=== PATIENT | female | born 1945 | race Caucasian/White ===

== ENCOUNTER → 2017-07-02 | Outpatient (CLI) | payer OTHER ==
--- NOTE | 2017-07-03 07:58 | MAMMOGRAPHY REPORT ---
BILATERAL DIGITAL SCREENING MAMMOGRAM WITH CAD: 07/02/2017 CLINICAL HISTORY: Routine screening. Patient has no complaints. TECHNIQUE: Bilateral CC and MLO views were obtained. Current study was also evaluated with a Compute r Aided Detection (CAD) system. COMPARISON: Comparison is made to exams dated: 06/28/2016 mammogram, 06/27/2015 mammogram, 06/25/2014 ma mmogram, 06/24/2013 mammogram, 06/23/2012 mammogram, and 06/22/2011 mammogram - [facility]. BREAST COMPOSITION: There are scattered areas of fibroglandular density in both breasts. FINDINGS: There is stable nodularity bilaterally, and a few benign rim calcifications in the breasts. No suspicious spiculated or irregular mass, architectural distortion or cluster of microcalcificati ons is seen. IMPRESSION: ACR BI-RADS CATEGORY 1: NEGATIVE There is no mammographic evidence of malignancy. A 1 year screening mammogram is recommended. The pa tient will receive written notification of the results. Approximately 10% of breast cancers are not detected with mammography. A negative mammographic report should not delay biopsy if a clinically suggestive mass is present. Florence Wharton M.D. ay/:07/02/2017 15:20:36 [place] Cutter: Sophie CARMONA(R)(M), [facility] letter sent: Normal 1/2 BI-RADS Code: ACR BI-RADS Category 1: Negative
== END | disposition home or self-care (01) ==
LOC: C.MAMM 14:44
PROVIDERS: ATTEND Obstetrics & Gynecology
DX: Z12.31 Encounter for screening mammogram for malignant neoplasm of breast (principal)

== ENCOUNTER → 2018-07-07 | Outpatient (CLI) | payer OTHER ==
--- NOTE | 2018-07-08 06:58 | MAMMOGRAPHY REPORT ---
BILATERAL DIGITAL SCREENING MAMMOGRAM TOMOSYNTHESIS WITH CAD: 07/07/2018 CLINICAL HISTORY: Routine screening. Patient has no complaints. TECHNIQUE: The study was acquired using full field digital technology and interpreted from soft copy. Breast tomosynthesis in addition to standard 2D mammography was performed. Current study was also ev aluated with a Computer Aided Detection (CAD) system. COMPARISON: Comparison is made to exams dated: 07/02/2017 mammogram, 06/28/2016 mammogram, 06/27/2015 m ammogram, 06/25/2014 mammogram, 06/24/2013 mammogram, and 06/23/2012 mammogram - [facility]. BREAST COMPOSITION: There are scattered areas of fibroglandular density in both breasts. FINDINGS: There is fluctuating nodularity in the breasts, with multiple bilateral circumscribed subce ntimeter benign-appearing masses. Scattered benign rim calcifications as well. No suspicious spicul ated or irregular mass, architectural distortion or cluster of suspicious microcalcifications is seen . IMPRESSION: ACR BI-RADS CATEGORY 1: NEGATIVE There is no mammographic evidence of malignancy. A 1 year screening mammogram is recommended.( 019) The patient will receive written notification of the results. Some breast cancers are not detected with mammography. A negative mammographic report should not marcial y biopsy if a clinically suggestive mass is present. Florence Wharton M.D. ay/:07/07/2018 15:55:03 [place] Operator: Sara Villarreal RT(R)(M), [facility] letter sent: Normal 1/2 BI-RADS Code: ACR BI-RADS Category 1: Negative
== END | disposition home or self-care (01) ==
LOC: C.MAMM 09:06
PROVIDERS: ATTEND Family Medicine
DX: Z12.31 Encounter for screening mammogram for malignant neoplasm of breast (principal)

== ENCOUNTER 2021-06-23 16:21 | Inpatient (IN) ==
[2021-06-23] MEDS ORDERED: SODIUM CHLORIDE 0.9% 1000ML 1,000 ML IV ONE (16:28)
[2021-06-23] MEDS ORDERED: SODIUM CHLORIDE 0.9% 1000ML 1,000 ML IV SCH ×2 (16:30→18:45)
[2021-06-23] MEDS ORDERED: dilTIAZem HCl 5 MG/ML 5 ML VIAL IV ONE (16:36)
[2021-06-23 17:00] LABS: Basophils # (auto) 0.01 K/uL (0-0.2); Basophils % (auto) 0.2 %; Eosinophils # (auto) 0.02 K/uL (0-0.5); Eosinophils % (auto) 0.3 %; Hematocrit (blood only) 42.7 % (37-47); Hemoglobin 14.6 g/dL (12.0-16.0); Immature Granulocytes # (auto) 0.01 K/uL (0.00-0.02); Immature Granulocytes % (auto) 0.2 %; Lymphocytes # (auto) 2.83 K/uL (1.2-3.4); Lymphocytes % (auto) 44.8 %; Mean Corpuscular Hemoglobin 30.4 pg (25-34); Mean Corpuscular Hgb Conc 34.2 g/dL (32-36); Monocytes # (auto) 0.88 K/uL (0.11-0.59); Monocytes % (auto) 13.9 %; Neutrophils # (auto) 2.56 K/uL (1.4-6.5); Neutrophils % (auto) 40.6 %; Platelet Count 216 K/uL (130-400); RDW Coefficient of Variation 13.9 % (11.5-14.5); RDW Standard Deviation 45.5 fL (36.4-46.3); White Blood Count 6.31 K/uL (4.8-10.8)
[2021-06-23 17:04] LABS: iSTAT Creatinine 0.6 mg/dl (0.6-1.3); iSTAT Hemoglobin 14.6 g/dl (12.0-16.0); iSTAT Ionized Calcium 1.27 mmol/l (1.12-1.32); iSTAT Potassium 3.7 mmol/L (3.3-5.0)
--- NOTE | 2021-06-23 17:05 | XRay Report ---
SINGLE VIEW CHEST CLINICAL HISTORY: Sepsis. FINDINGS: An AP, portable, upright chest radiograph is obtained. No prior studies are available for c omparison at the time of dictation. The cardiomediastinal silhouette is unremarkable. Airspace opaci ties at the left lung base likely represent atelectasis. A 9 mm hyperdense nodular density projects o rimma the left lower lung. No large pleural effusion or pneumothorax is seen. The skeletal structures a re osteopenic. There are healed right-sided rib fractures. IMPRESSION: 1. Left basilar opacities likely represent atelectasis. Correlate clinically for evidence of a superi mposed infectious/inflammatory pneumonitis. 2. A 9 mm hyperdense nodule projects over the left lung base and may represent a calcified granuloma. Follow-up with a dedicated PA and lateral examination in 1-2 months time is recommended for reassess ment. ACT 112: Negative or not required by law. Electronically signed by: Diogo Lucio M.D. 06/23/2021 5:04 PM
[2021-06-23 17:13] LABS: Oxygen Saturation VBG 74.6 %; pH VBG 7.43 (7.36-7.41)
[2021-06-23 17:15] LABS: Partial Thromboplastin Time 26.2 Seconds (21.0-31.0); Prothrombin Time 10.6 Seconds (9.0-12.0)
[2021-06-23] MEDS ORDERED: OPTIRAY 320 125ml IV ONE (17:23)
[2021-06-23 17:24] LABS: Alanine Aminotransferase 58 U/L (12-78); Albumin Level 2.9 gm/dl (3.4-5.0); Aspartate Aminotransferase 43 U/L (15-37); BUN Creatinine Ratio 21.2 (10-20); Blood Urea Nitrogen 16 mg/dl (7-18); Calcium 8.6 mg/dl (8.5-10.1); Carbon Dioxide 25 mmol/L (21-32); Chloride 109 mmol/L (98-107); Est GFR (African American) 91.2 ml/min; Est GFR (Non-African American) 78.7 ml/min; Glucose 237 mg/dl (70-99); Magnesium 1.8 mg/dl (1.8-2.4); Potassium 3.6 mmol/L (3.5-5.1); Sodium 139 mmol/L (136-145)
[2021-06-23 17:31] LABS: Albumin Globulin Ratio 0.8 (0.9-2); Alkaline Phosphatase 79 U/L (45-117); Bilirubin,Total 0.5 mg/dl (0.2-1); Globulin 3.6 gm/dl (2.5-4.0); Total Protein 6.5 gm/dl (6.4-8.2); Troponin I 0.052 ng/ml (0-0.045)
--- NOTE | 2021-06-23 18:10 | Emergency Department Note ---
History of Present Illness General Chief complaint: Cardiac Assessment Stated complaint: Afib/loss of taste/smell Time Seen by Provider: 06/23/21 16:22 History of Present Illness Provider complaint: Nausea loss of taste and smell weakness shortness of breath cough Onset (ago): day(s) 3 Pain Consistency: + constant Associated symptoms: + cough, + malaise, + nausea/vomiting and + shortness of breath 76-year-old female presents emergency department for cough, mobilized, loss of taste smell, shortness of breath, and palpitations. Patient states her symptoms are gone for last 3 days. Patient states she recently returned from [place] where she was dog sitting her son's animals. She states she got ill while she was down there and had her drive down to [place] to pick her up. The patient states they returned to [place] yesterday after driving from [place]. The patient denies any hemoptysis. She denies any history of atrial fibrillation. She denies getting a Covid vaccine. Patient denies any syncopal episodes. She denies any chest pain. Patient is a diabetic. Patient states she has been so ill that she has been unable to take her pravastatin or atenolol that she is prescribed for the last 2 days. Home Medications Medication Instructions Recorded Confirmed Type acetaminophen 500 mg tablet 1,000 mg PO DIRECTED PRN 06/23/21 06/23/21 History (Tylenol Extra Strength) aspirin 81 mg tablet,delayed 81 mg PO DAILY 06/23/21 06/23/21 History release atenolol 50 mg tablet 50 mg PO DAILY 06/23/21 06/23/21 History cholecalciferol (vitamin D3) 25 25 mcg PO DAILY 06/23/21 06/23/21 History mcg (1,000 unit) capsule (Vitamin D3) hydroxyzine HCl 10 mg tablet 10 - 20 mg PO HS PRN 06/23/21 06/23/21 History insulin degludec 200 unit/mL (3 30 unit SUBCUT QPM 06/23/21 06/23/21 History mL) subcutaneous pen (Tresiba FlexTouch U-200 insulin) pravastatin 40 mg tablet 40 mg PO DAILY 06/23/21 06/23/21 History triamcinolone acetonide 0.1 % 1 applic TOPICAL BID PRN 06/23/21 06/23/21 History topical ointment Allergies Allergy/AdvReac Type Severity Reaction Status Date / Time No Known Allergies Allergy Verified 06/23/21 17:32 Past Med/Surg History Medical History (Updated 06/23/21 @ 19:52 by Rosalio Gutiérrez) HLD (hyperlipidemia) Hypertension IDDM (insulin dependent diabetes mellitus) No pertinent family history Surgical History (Updated 06/23/21 @ 18:16 by Rosalio Gutiérrez) No pertinent past surgical history Social History Smoking Status: Unknown if ever smoked Preferred Language: Divehi Review of Systems A total of 10 systems reviewed and were otherwise negative Physical Exam Vital Signs Vital Signs - 24 hr 06/23/21 16:41 06/23/21 16:50 06/23/21 17:33 Temperature Temperature Source Pulse Rate 108 H 92 H 101 H Pulse Rate from SpO2 Sensor 91 H 86 115 H Respiratory Rate 16 20 23 Blood Pressure 165/108 H 166/103 H Blood Pressure Mean 127 124 Pulse Oximetry 92 97 92 Oxygen Delivery Method Sepsis Recent Fever Within 48 Hours Sepsis New/Unexplained Change in Mental Status Sepsis Action Taken by Nursing 06/23/21 18:19 06/23/21 18:25 06/23/21 18:33 Temperature 36.7 C Temperature Source Oral Pulse Rate 134 H 140 H 130 H Pulse Rate from SpO2 Sensor 116 H 115 H Respiratory Rate 27 H 20 18 Blood Pressure 90/54 L 130/90 Blood Pressure Mean 66 103 Pulse Oximetry 92 94 93 Oxygen Delivery Method Room Air Sepsis Recent Fever Within 48 Hours No Sepsis New/Unexplained Change in Mental Status N/A Sepsis Action Taken by Nursing No Action Required 06/23/21 18:56 Temperature Temperature Source Pulse Rate Pulse Rate from SpO2 Sensor Respiratory Rate Blood Pressure Blood Pressure Mean Pulse Oximetry Oxygen Delivery Method Room Air Sepsis Recent Fever Within 48 Hours Sepsis New/Unexplained Change in Mental Status Sepsis Action Taken by Nursing Physical Exam GENERAL: She is oriented to person, place, and time. She appears well-developed and well-nourished. She does not appear distressed. HENT: Exam performed. -Head: Normocephalic and atraumatic. -Right Ear: External ear normal. No mastoid tenderness. -Left Ear: External ear normal. No mastoid tenderness. -Mouth/Throat: The oropharynx is clear and moist. No trismus in the jaw. No dental abscesses or uvula swelling. No oropharyngeal exudate or tonsillar abscesses. EYES: Conjunctivae and EOM are normal. Pupils are equal, round, and reactive to light. Right eye exhibits no discharge. Left eye exhibits no discharge. No scleral icterus. NECK: Normal range of motion. Neck supple. No JVD present. No spinous process tenderness present. No carotid bruit present. No rigidity. No tracheal deviation and normal range of motion present. No Brudzinski's sign and no Kernig's sign noted. CV: Tachycardic rate, irregular rhythm, normal heart sounds and intact distal pulses. There is no peripheral edema. Palpable radial pulses bue. PULM/CHEST: Rhonchi bilaterally. ABD: The abdomen is soft. Bowel sounds are normal. She has no distension. No mass is present. There is no tenderness. There is no rebound, no guarding, no Thakur's sign and no tenderness at McBurney's point. Rovsig negative MUSC/SKEL: Normal range of motion. There is no peripheral edema, tenderness or deformity. LYMPH: No cervical adenopathy. NEURO: She is alert and oriented to person, place, and time. She has normal strength. No cranial nerve deficit or sensory deficit. Coordination and gait normal. GCS eye subscore is 4. GCS verbal subscore is 5. GCS motor subscore is 6. Cerebellar tests wnl. SKIN: Skin is warm and dry. She is not diaphoretic. PSYCH: She has a normal mood and affect. Behavior is normal. Judgment and thought content normal. Course Course 1600: Received call from EMS for 76-year-old female who is in atrial fibrillation with rapid ventricular rate. EMS states that they were concerned that the patient might have COVID-19 as she has recently traveled and is reporting mellitus, palpitations, nausea and loss of taste or smell. Patient is on vaccine gets COVID-19. EMS asked if they should give any rate controlling medications however I encouraged him to adequately hydrate the patient as if there is concerned that she is having COVID-19 she could be septic. 500 cc bolus of normal saline was ordered for the patient and I instructed EMS to call me back to see if the patient's heart rate is improving with the fluids and then we can possibly rebolused the patient. 1622: The patient was evaluated in room B. A complete history and physical exam was performed Cardiac monitoring: An order was placed for continuous cardiac monitoring. The monitor shows a rate of 140 with atrial fibrilation rhythm EMS reported that the patient's heart rate did improve with IV fluids. They did start a second bolus of 500 cc. The EMS crew reported that while getting the second bolus of 500 cc the patient's heart rate ranged from 70-140. IV fluids are continued at this time. While getting IV fluids the patient's heart rate ranges from 100-140. We will continue IV fluids on the patient and hold off on any rate controlling medications as there is concerned that the patient could be septic from COVID-19. 1650: After 1 L of IV fluids the patient's heart rate is ranging from 80-110. Patient states she has been so ill she has been unable to take her atenolol for the last 2 days. Patient has her home atenolol 50 mg at bedside. Patient was giving her home medication atenolol 50 mg p.o. and tolerated it well. We will continue IV fluids at this patient. Chest x-ray reviewed by me does show findings that could be concerning for COVID-19 including bilateral groundglass o pacities. Patient's creatinine and potassium are within normal limits. Given the patient's recent travel and her rapid ventricular rate, the patient be taken for CTA of the chest rule out PE. 1730: On return from the CT the patient's heart rate is between 80 and 110 in atrial fibrillation rhythm. Labs are within normal limits with the exception of troponin of 0.052. 1845: Called to bedside by nursing. Patient's heart rate is ranging anywhere from 90-160. Patient be given IV fluids again and started on Cardizem drip as well as heparin drip. CTA of the chest negative for PE or dissection. CTA of the chest does make note of patchy groundglass opacities seen throughout both lungs. I discussed the case with the patient's son Moiz [phone]. I explained to him as well as the patient that the patient will be admitted to the hospital for her atrial fibrillation with rapid ventricular rate as well as her COVID-19 infection. Patient is still having stable oxygen saturations on room air. Moiz asks that his Lakshmi phone number also be included in the chart at [phone] in case he is unavailable. Patient will be admitted to the [facility] hospitalist team Dr. Limon will be notified. 1930: [facility] will evaluate the patient and admit the patient. Administered Medications Heparin Sodium/Dextrose (Heparin Sodium/Dextrose) 25,000 units in 500 mls @ 26 mls/hr IV .[id number] AMY; Protocol Stop: 07/23/21 18:44 Last Admin: 06/23/21 19:16 Dose: 1,300 units/hr, 26 mls/hr Documented by: [id number] Cosigned by: [id number] Diltiazem HCl 125 mg/ Dextrose 125 mls @ 5 mls/hr IV .Q24H AMY; Protocol Stop: 07/23/21 18:44 Last Titration: 06/23/21 19:49 Dose: 7.5 mg/hr, 7.5 mls/hr Documented by: [id number] Cosigned by: [id number] Admin: 06/23/21 19:12 Dose: 5 mg/hr, 5 mls/hr Documented by: [id number] Cosigned by: [id number] Sodium Chloride (Nss 1000ml) 1,000 mls @ 125 mls/hr IV .Q8H AMY Stop: 07/23/21 18:44 Last Admin: 06/23/21 19:06 Dose: 125 mls/hr Documented by: [id number] Discontinued Medications Diltiazem HCl (Diltiazem Hcl 5 Mg/Ml 5 Ml Vial) Confirm Administered Dose 25 mg IV .STK-MED ONE Stop: 06/23/21 16:37 Last Admin: 06/23/21 19:05 Dose: Not Given Documented by: [id number] Heparin Sodium (Porcine) (Heparin Sod (Porcine) 1000 Unit/Ml) 1 units IV NOW ONE Stop: 06/23/21 18:41 Last Admin: 06/23/21 19:15 Dose: 6,000 units Documented by: [id number] Cosigned by: [id number] Sodium Chloride (Nss 1000ml) 1,000 mls @ 999 mls/hr IV .Q1H1M ONE Stop: 06/23/21 17:28 Last Admin: 06/23/21 17:35 Dose: 999 mls/hr Documented by: [id number] Ioversol (Optiray 320 125ml) 116 ml IV ONCE ONE Stop: 06/23/21 17:24 Last Admin: 06/23/21 17:24 Dose: 116 ml Documented by: [id number] Critical Care Time Critical Care Time: Yes Total Critical Care Time: 76 I have personally spent greater than 76 minutes of critical care time in the direct management of this patient. This includes bedside care, interpretation of diagnostic studies, and testing, discussion with consultants, patient, and family members, and other required patient management activities. This 76 minutes is in excess of all separately billable procedures. Medical Decision Making Laboratory Data Result diagrams: 06/23/21 16:40 06/23/21 16:40 Lab Results 06/23/21 06/23/21 06/23/21 Range/Units 16:30 16:30 16:40 WBC (4.8-10.8) K/uL RBC (4.2-5.4) M/uL Hgb (12.0-16.0) g/dL POC Hgb (12.0-16.0) g/dl Hct (37-47) % POC Hct (37-47) % MCV (80-100) fL MCH (25-34) pg MCHC (32-36) g/dL RDW Std Deviation (36.4-46.3) fL RDW Coeff of Tanner (11.5-14.5) % Plt Count (130-400) K/uL MPV (7.4-10.4) fL Immature Gran % (Auto) % Neut % (Auto) % Lymph % (Auto) % [place]usk % (Auto) % Eos % (Auto) % Baso % (Auto) % Neut # (Auto) (1.4-6.5) K/uL Lymph # (Auto) (1.2-3.4) K/uL [place] # (Auto) (0.11-0.59) K/uL Eos # (Auto) (0-0.5) K/uL Baso # (Auto) (0-0.2) K/uL Immature Gran # (Auto) (0.00-0.02) K/uL PT (9.0-12.0) Seconds INR (0.9-1.1) APTT (21.0-31.0) Seconds PTT Ratio VBG pH (7.36-7.41) VBG pCO2 (38-50) mmHg VBG pO2 mmHg VBG HCO3 mmol/L VBG O2 Saturation % VBG Base Excess mEq/L Barometric Pressure mm/Hg POC Sodium (135-144) mmol/L Sodium 139 (136-145) mmol/L POC Potassium (3.3-5.0) mmol/L Potassium 3.6 (3.5-5.1) mmol/L POC Chloride (101-112) mmol/L Chloride 109 H (98-107) mmol/L Carbon Dioxide 25 (21-32) mmol/L POC Total CO2 (24-31) mmol/L Anion Gap 5.0 (3-11) POC Anion Gap (16-25) mmol/L POC BUN (7-18) mg/dl BUN 16 (7-18) mg/dl Creatinine 0.74 (0.6-1.2) mg/dl POC Creatinine (0.6-1.3) mg/dl Est Cr Clr Drug Dosing Not Reportable Est GFR ( Amer) 91.2 ml/min Est GFR (Non-Af Amer) 78.7 ml/min BUN/Creatinine Ratio 21.2 H (10-20) Glucose 237 H (70-99) mg/dl POC Glucose (other) (70-99) mg/dl Lactate (0.4-2.0) mmol/L Calcium 8.6 (8.5-10.1) mg/dl POC Ioniz Calcium Ermias (1.12-1.32) mmol/l Magnesium 1.8 (1.8-2.4) mg/dl Total Bilirubin 0.5 (0.2-1) mg/dl AST 43 H (15-37) U/L ALT 58 (12-78) U/L Alkaline Phosphatase 79 (45-117) U/L Troponin I 0.052 H* (0-0.045) ng/ml Total Protein 6.5 (6.4-8.2) gm/dl Albumin 2.9 L (3.4-5.0) gm/dl Globulin 3.6 (2.5-4.0) gm/dl Albumin/Globulin Ratio 0.8 L (0.9-2) Procalcitonin (0-0.5) ng/ml Urine Color Urine Appearance (Clear) Urine pH (4.5-7.5) Ur Specific [place] (1.000-1.030) Urine Protein (Negative) Urine Glucose (UA) (Negative) Urine Ketones (Negative) Urine Blood (Negative) Urine Nitrite (Negative) Urine Bilirubin (Negative) Urine Urobilinogen (Negative) Ur Leukocyte Esterase (Negative) Urine WBC (Auto) (0-5) /hpf Urine RBC (Auto) (0-4) /hpf U Hyaline Cast (Auto) (0-5) /lpf U Epithel Cells (Auto) (0-5) /lpf Urine Bacteria (Auto) (Negative) COVID-19 Eval Order Covid19 at [facility] SARS-CoV-2 (PCR) POSITIVE A* (Negative) 06/23/21 06/23/21 06/23/21 Range/Units 16:40 16:40 16:40 WBC 6.31 (4.8-10.8) K/uL RBC 4.80 (4.2-5.4) M/uL Hgb 14.6 (12.0-16.0) g/dL POC Hgb (12.0-16.0) g/dl Hct 42.7 (37-47) % POC Hct (37-47) % MCV 89.0 (80-100) fL MCH 30.4 (25-34) pg MCHC 34.2 (32-36) g/dL RDW Std Deviation 45.5 (36.4-46.3) fL RDW Coeff of Tanner 13.9 (11.5-14.5) % Plt Count 216 (130-400) K/uL MPV 12.0 H (7.4-10.4) fL Immature Gran % (Auto) 0.2 % Neut % (Auto) 40.6 % Lymph % (Auto) 44.8 % Rusk % (Auto) 13.9 % Eos % (Auto) 0.3 % Baso % (Auto) 0.2 % Neut # (Auto) 2.56 (1.4-6.5) K/uL Lymph # (Auto) 2.83 (1.2-3.4) K/uL [place] # (Auto) 0.88 H (0.11-0.59) K/uL Eos # (Auto) 0.02 (0-0.5) K/uL Baso # (Auto) 0.01 (0-0.2) K/uL Immature Gran # (Auto) 0.01 (0.00-0.02) K/uL PT (9.0-12.0) Seconds INR (0.9-1.1) APTT (21.0-31.0) Seconds PTT Ratio VBG pH 7.43 H (7.36-7.41) VBG pCO2 36 L (38-50) mmHg VBG pO2 40 mmHg VBG HCO3 24 mmol/L VBG O2 Saturation 74.6 % VBG Base Excess 0 mEq/L Barometric Pressure 734.6 mm/Hg POC Sodium (135-144) mmol/L Sodium (136-145) mmol/L POC Potassium (3.3-5.0) mmol/L Potassium (3.5-5.1) mmol/L POC Chloride (101-112) mmol/L Chloride (98-107) mmol/L Carbon Dioxide (21-32) mmol/L POC Total CO2 (24-31) mmol/L Anion Gap (3-11) POC Anion Gap (16-25) mmol/L POC BUN (7-18) mg/dl BUN (7-18) mg/dl Creatinine (0.6-1.2) mg/dl POC Creatinine (0.6-1.3) mg/dl Est Cr Clr Drug Dosing Est GFR ( Amer) ml/min Est GFR (Non-Af Amer) ml/min BUN/Creatinine Ratio (10-20) Glucose (70-99) mg/dl POC Glucose (other) (70-99) mg/dl Lactate (0.4-2.0) mmol/L Calcium (8.5-10.1) mg/dl POC Ioniz Calcium Ermias (1.12-1.32) mmol/l Magnesium (1.8-2.4) mg/dl Total Bilirubin (0.2-1) mg/dl AST (15-37) U/L ALT (12-78) U/L Alkaline Phosphatase (45-117) U/L Troponin I (0-0.045) ng/ml Total Protein (6.4-8.2) gm/dl Albumin (3.4-5.0) gm/dl Globulin (2.5-4.0) gm/dl Albumin/Globulin Ratio (0.9-2) Procalcitonin < 0.05 (0-0.5) ng/ml Urine Color Urine Appearance (Clear) Urine pH (4.5-7.5) Ur Specific [place] (1.000-1.030) Urine Protein (Negative) Urine Glucose (UA) (Negative) Urine Ketones (Negative) Urine Blood (Negative) Urine Nitrite (Negative) Urine Bilirubin (Negative) Urine Urobilinogen (Negative) Ur Leukocyte Esterase (Negative) Urine WBC (Auto) (0-5) /hpf Urine RBC (Auto) (0-4) /hpf U Hyaline Cast (Auto) (0-5) /lpf U Epithel Cells (Auto) (0-5) /lpf Urine Bacteria (Auto) (Negative) COVID-19 Eval Order SARS-CoV-2 (PCR) (Negative) 06/23/21 06/23/21 06/23/21 Range/Units 16:40 16:40 16:52 WBC (4.8-10.8) K/uL RBC (4.2-5.4) M/uL Hgb (12.0-16.0) g/dL POC Hgb 14.6 (12.0-16.0) g/dl Hct (37-47) % POC Hct 43 (37-47) % MCV (80-100) fL MCH (25-34) pg MCHC (32-36) g/dL RDW Std Deviation (36.4-46.3) fL RDW Coeff of Tanner (11.5-14.5) % Plt Count (130-400) K/uL MPV (7.4-10.4) fL Immature Gran % (Auto) % Neut % (Auto) % Lymph % (Auto) % [place] % (Auto) % Eos % (Auto) % Baso % (Auto) % Neut # (Auto) (1.4-6.5) K/uL Lymph # (Auto) (1.2-3.4) K/uL [place] # (Auto) (0.11-0.59) K/uL Eos # (Auto) (0-0.5) K/uL Baso # (Auto) (0-0.2) K/uL Immature Gran # (Auto) (0.00-0.02) K/uL PT 10.6 (9.0-12.0) Seconds INR 1.0 (0.9-1.1) APTT 26.2 (21.0-31.0) Seconds PTT Ratio 1.0 VBG pH (7.36-7.41) VBG pCO2 (38-50) mmHg VBG pO2 mmHg VBG HCO3 mmol/L VBG O2 Saturation % VBG Base Excess mEq/L Barometric Pressure mm/Hg POC Sodium 141 (135-144) mmol/L Sodium (136-145) mmol/L POC Potassium 3.7 (3.3-5.0) mmol/L Potassium (3.5-5.1) mmol/L POC Chloride 103 (101-112) mmol/L Chloride (98-107) mmol/L Carbon Dioxide (21-32) mmol/L POC Total CO2 24 (24-31) mmol/L Anion Gap (3-11) POC Anion Gap 18.0 (16-25) mmol/L POC BUN 17 (7-18) mg/dl BUN (7-18) mg/dl Creatinine (0.6-1.2) mg/dl POC Creatinine 0.6 (0.6-1.3) mg/dl Est Cr Clr Drug Dosing Est GFR ( Amer) ml/min Est GFR (Non-Af Amer) ml/min BUN/Creatinine Ratio (10-20) Glucose (70-99) mg/dl POC Glucose (other) 252 H (70-99) mg/dl Lactate 1.6 (0.4-2.0) mmol/L Calcium (8.5-10.1) mg/dl POC Ioniz Calcium Ermias 1.27 (1.12-1.32) mmol/l Magnesium (1.8-2.4) mg/dl Total Bilirubin (0.2-1) mg/dl AST (15-37) U/L ALT (12-78) U/L Alkaline Phosphatase (45-117) U/L Troponin I (0-0.045) ng/ml Total Protein (6.4-8.2) gm/dl Albumin (3.4-5.0) gm/dl Globulin (2.5-4.0) gm/dl Albumin/Globulin Ratio (0.9-2) Procalcitonin (0-0.5) ng/ml Urine Color Urine Appearance (Clear) Urine pH (4.5-7.5) Ur Specific [place] (1.000-1.030) Urine Protein (Negative) Urine Glucose (UA) (Negative) Urine Ketones (Negative) Urine Blood (Negative) Urine Nitrite (Negative) Urine Bilirubin (Negative) Urine Urobilinogen (Negative) Ur Leukocyte Esterase (Negative) Urine WBC (Auto) (0-5) /hpf Urine RBC (Auto) (0-4) /hpf U Hyaline Cast (Auto) (0-5) /lpf U Epithel Cells (Auto) (0-5) /lpf Urine Bacteria (Auto) (Negative) COVID-19 Eval Order SARS-CoV-2 (PCR) (Negative) 06/23/21 Range/Units 17:39 WBC (4.8-10.8) K/uL RBC (4.2-5.4) M/uL Hgb (12.0-16.0) g/dL POC Hgb (12.0-16.0) g/dl Hct (37-47) % POC Hct (37-47) % MCV (80-100) fL MCH (25-34) pg MCHC (32-36) g/dL RDW Std Deviation (36.4-46.3) fL RDW Coeff of Tanner (11.5-14.5) % Plt Count (130-400) K/uL MPV (7.4-10.4) fL Immature Gran % (Auto) % Neut % (Auto) % Lymph % (Auto) % [place] % (Auto) % Eos % (Auto) % Baso % (Auto) % Neut # (Auto) (1.4-6.5) K/uL Lymph # (Auto) (1.2-3.4) K/uL [place] # (Auto) (0.11-0.59) K/uL Eos # (Auto) (0-0.5) K/uL Baso # (Auto) (0-0.2) K/uL Immature Gran # (Auto) (0.00-0.02) K/uL PT (9.0-12.0) Seconds INR (0.9-1.1) APTT (21.0-31.0) Seconds PTT Ratio VBG pH (7.36-7.41) VBG pCO2 (38-50) mmHg VBG pO2 mmHg VBG HCO3 mmol/L VBG O2 Saturation % VBG Base Excess mEq/L Barometric Pressure mm/Hg POC Sodium (135-144) mmol/L Sodium (136-145) mmol/L POC Potassium (3.3-5.0) mmol/L Potassium (3.5-5.1) mmol/L POC Chloride (101-112) mmol/L Chloride (98-107) mmol/L Carbon Dioxide (21-32) mmol/L POC Total CO2 (24-31) mmol/L Anion Gap (3-11) POC Anion Gap (16-25) mmol/L POC BUN (7-18) mg/dl BUN (7-18) mg/dl Creatinine (0.6-1.2) mg/dl POC Creatinine (0.6-1.3) mg/dl Est Cr Clr Drug Dosing Est GFR ( Amer) ml/min Est GFR (Non-Af Amer) ml/min BUN/Creatinine Ratio (10-20) Glucose (70-99) mg/dl POC Glucose (other) (70-99) mg/dl Lactate (0.4-2.0) mmol/L Calcium (8.5-10.1) mg/dl POC Ioniz Calcium Ermias (1.12-1.32) mmol/l Magnesium (1.8-2.4) mg/dl Total Bilirubin (0.2-1) mg/dl AST (15-37) U/L ALT (12-78) U/L Alkaline Phosphatase (45-117) U/L Troponin I (0-0.045) ng/ml Total Protein (6.4-8.2) gm/dl Albumin (3.4-5.0) gm/dl Globulin (2.5-4.0) gm/dl Albumin/Globulin Ratio (0.9-2) Procalcitonin (0-0.5) ng/ml Urine Color Yellow Urine Appearance Clear (Clear) Urine pH 6.0 (4.5-7.5) Ur Specific [place] 1.011 (1.000-1.030) Urine Protein Negative (Negative) Urine Glucose (UA) 1+ H (Negative) Urine Ketones Negative (Negative) Urine Blood Negative (Negative) Urine Nitrite Negative (Negative) Urine Bilirubin Negative (Negative) Urine Urobilinogen Negative (Negative) Ur Leukocyte Esterase Trace H (Negative) Urine WBC (Auto) 1-5 (0-5) /hpf Urine RBC (Auto) 0-4 (0-4) /hpf U Hyaline Cast (Auto) 0 (0-5) /lpf U Epithel Cells (Auto) >30 H (0-5) /lpf Urine Bacteria (Auto) Negative (Negative) COVID-19 Eval Order SARS-CoV-2 (PCR) (Negative) Imaging Data Radiologist's Impression: Chest X-Ray 06/23/21 16:23 SINGLE VIEW CHEST CLINICAL HISTORY: Sepsis. FINDINGS: An AP, portable, upright chest radiograph is obtained. No prior studies are available for comparison at the time of dictation. The cardiomediastinal silhouette is unremarkable. Airspace opacities at the left lung base likely represent atelectasis. A 9 mm hyperdense nodular density projects over the left lower lung. No large pleural effusion or pneumothorax is seen. The skeletal structures are osteopenic. There are healed right-sided rib fractures. IMPRESSION: 1. Left basilar opacities likely represent atelectasis. Correlate clinically for evidence of a superimposed infectious/inflammatory pneumonitis. 2. A 9 mm hyperdense nodule projects over the left lung base and may represent a calcified granuloma. Follow-up with a dedicated PA and lateral examination in 1- 2 months time is recommended for reassessment. ACT 112: Negative or not required by law. Electronically signed by: Diogo Lucio M.D. 06/23/2021 5:04 PM Chest CTA 06/23/21 17:03 CT ANGIOGRAM OF THE CHEST CLINICAL HISTORY: Atypical chest pain. COMPARISON STUDY: Chest x-ray performed the same day 06/23/2021. TECHNIQUE: Following the IV administration of 116 cc of Optiray 320, CT angiogram of the chest was performed from the upper abdomen to the thoracic inlet utilizing the pulmonary embolus protocol. Images are reviewed in the axial, sagittal, and coronal planes. 3-D MIPS images are created and assessed. IV contrast was administered without complication. A dose lowering technique was utilized adhering to the principles of ALARA. Examination is significantly degraded by motion artifact. CT DOSE: 687.71 mGy.cm FINDINGS: Thyroid: Imaged portions of the thyroid gland are normal in size and attenuation. Thoracic aorta: There is mild atherosclerotic calcification of the thoracic ao rta, with is normal in caliber and demonstrates standard 3-vessel arch anatomy. The thoracic aorta is not well opacified. Pulmonary vasculature: The pulmonary trunk is normal in caliber. There are no filling defects identified in main, lobar, or segmental pulmonary branches to suggest pulmonary embolus. Heart: The heart is normal in size and without pericardial effusion. Lungs and pleural spaces: Evaluation of the lung parenchyma is compromised by motion artifact. There are foci of patchy nodular consolidation seen throughout both lungs, greatest at the right lung base on image #46. No pleural effusion is identified. The trachea and central airways are clear. Mediastinum: There is no mediastinal lymphadenopathy. [place]: Clear. Axillae: There is no axillary lymphadenopathy. Upper abdomen: A small hiatal hernia is noted. Partially visualized upper abdominal viscera is otherwise grossly unremarkable. Skeletal structures: The skeletal structures are osteopenic. No lytic or blastic bony lesions are seen. IMPRESSION: 1. There is no evidence of pulmonary embolus in the main, lobar, or segmental pulmonary arteries. 2. There are scattered foci of patchy groundglass consolidation seen throughout both lungs. This is typical for an infectious/inflammatory pneumonitis and clinical correlation will be required. Based of the groundglass appearance, a 3- 4 month follow-up chest CT is recommended to document resolution. 3. No pleural effusion is identified. 4. Additional findings as above. ACT 112: Positive. There are findings on this exam that require communication between the performing entity and the patient following Patient Test Result Information Act ([place] Act 112) guidelines. Electronically signed by: Diogo Lucio M.D. 06/23/2021 6:16 PM ECG Data Additional Comments: EKG #1 at 1626: Atrial fibrillation with a rate of 144. QRS [address] elevation or ST depression. Left ventricular hypertrophy present. EKG #2 at 1646 with IV fluids running: Atrial fibrillation with rate of 101. QRS [address] elevation or ST depression. Left ventricular hypertrophy present. MDM Narrative 1600: Received call from EMS for 76-year-old female who is in atrial fibrillation with rapid ventricular rate. EMS states that they were concerned that the patient might have COVID-19 as she has recently traveled and is reporting mellitus, palpitations, nausea and loss of taste or smell. Patient is on vaccine gets COVID-19. EMS asked if they should give any rate controlling medications however I encouraged him to adequately hydrate the patient as if there is concerned that she is having COVID-19 she could be septic. 500 cc bolus of normal saline was ordered for the patient and I instructed EMS to call me back to see if the patient's heart rate is improving with the fluids and then we can possibly rebolused the patient. 1622: The patient was evaluated in room B. A complete history and physical exam was performed Cardiac monitoring: An order was placed for continuous cardiac monitoring. The monitor shows a rate of 140 with atrial fibrilation rhythm EMS reported that the patient's heart rate did improve with IV fluids. They did start a second bolus of 500 cc. The EMS crew reported that while getting the second bolus of 500 cc the patient's heart rate ranged from 70-140. IV fluids are continued at this time. While getting IV fluids the patient's heart rate ranges from 100-140. We will continue IV fluids on the patient and hold off on any rate controlling medications as there is concerned that the patient could be septic from COVID-19. 1650: After 1 L of IV fluids the patient's heart rate is ranging from 80-110. Patient states she has been so ill she has been unable to take her atenolol for the last 2 days. Patient has her home atenolol 50 mg at bedside. Patient was giving her home medication atenolol 50 mg p.o. and tolerated it well. We will continue IV fluids at this patient. Chest x-ray reviewed by me does show findi ngs that could be concerning for COVID-19 including bilateral groundglass opacities. Patient's creatinine and potassium are within normal limits. Given the patient's recent travel and her rapid ventricular rate, the patient be taken for CTA of the chest rule out PE. 1730: On return from the CT the patient's heart rate is between 80 and 110 in atrial fibrillation rhythm. Labs are within normal limits with the exception of troponin of 0.052. 1845: Called to bedside by nursing. Patient's heart rate is ranging anywhere from 90-160. Patient be given IV fluids again and started on Cardizem drip as well as heparin drip. CTA of the chest negative for PE or dissection. CTA of the chest does make note of patchy groundglass opacities seen throughout both lungs. I discussed the case with the patient's son Moiz [phone]. I explained to him as well as the patient that the patient will be admitted to the hospital for her atrial fibrillation with rapid ventricular rate as well as her COVID-19 infection. Patient is still having stable oxygen saturations on room air. Moiz asks that his Lakshmi phone number also be included in the chart at [phone] in case he is unavailable. Patient will be [facility] to [facility] team Dr. Limon will be notified. 1930: Dr. Kong [facility] will evaluate the patient and admit the patient. Impression & Plan COVID-19, Atrial fibrillation with rapid ventricular response Discharge Plan Visit Data Chief Complaint: Cardiac Assessment Stated Complaint: Afib/loss of taste/smell ED Provider: Rosalio Gutiérrez Discharge Problem: COVID-19, Atrial fibrillation with rapid ventricular response Patient Disposition: Admitted As Inpatient Forms Stand Alone Forms: My [facility] Prescriptions Prescriptions: No Action pravastatin 40 mg tablet 40 mg PO DAILY RF: 0 aspirin 81 mg Tablet,Delayed Release (Dr/Ec) 81 mg PO DAILY RF: 0 acetaminophen [Tylenol Extra Strength] 500 mg Tablet 1,000 mg PO DIRECTED PRN (Reason: Pain) RF: 0 triamcinolone acetonide 0.1 % ointment 1 applic TOPICAL BID PRN (Reason: Skin Irritation) RF: 0 hydroxyzine HCl 10 mg tablet 10 - 20 mg PO HS PRN (Reason: Itching) RF: 0 atenolol 50 mg tablet 50 mg PO DAILY RF: 0 cholecalciferol (vitamin D3) [Vitamin D3] 25 mcg (1,000 unit) Capsule 25 mcg PO DAILY RF: 0 Tresiba FlexTouch U-200 200 unit/mL (3 mL) insulin pen 30 unit SUBCUT QPM RF: 0 Referrals Referrals: Jessika Chavarria MD [Primary Care Provider] -
[2021-06-23 18:13] LABS: Appearance Urine Clear (Clear); Bacteria Urine Automated Negative (Negative); Bilirubin Urine Negative (Negative); Blood Urine Negative (Negative); Cast Urine Automated 0 /lpf (0-5); Color Urine Yellow; Epithelial Cell Urine Auto >30 /lpf (0-5); Glucose Urine UA 1+ (Negative); Ketones Urine Negative (Negative); Leukocyte Esterase Urine Trace (Negative); Nitrite Urine Negative (Negative); Protein Urine Negative (Negative); RBC Urine Automated 0-4 /hpf (0-4); Specific Gravity Urine 1.011 (1.000-1.030); Urobilinogen Urine Negative (Negative)
--- NOTE | 2021-06-23 18:18 | CT Scan Report ---
CT ANGIOGRAM OF THE CHEST CLINICAL HISTORY: Atypical chest pain. COMPARISON STUDY: Chest x-ray performed the same day 06/23/2021. TECHNIQUE: Following the IV administration of 116 cc of Optiray 320, CT angiogram of the chest was pe rformed from the upper abdomen to the thoracic inlet utilizing the pulmonary embolus protocol. Images are reviewed in the axial, sagittal, and coronal planes. 3-D MIPS images are created and assessed. I V contrast was administered without complication. A dose lowering technique was utilized adhering to the principles of ALARA. Examination is significantly degraded by motion artifact. CT DOSE: 687.71 mGy.cm FINDINGS: Thyroid: Imaged portions of the thyroid gland are normal in size and attenuation. Thoracic aorta: There is mild atherosclerotic calcification of the thoracic aorta, with is normal in caliber and demonstrates standard 3-vessel arch anatomy. The thoracic aorta is not well opacified. Pulmonary vasculature: The pulmonary trunk is normal in caliber. There are no filling defects identif ied in main, lobar, or segmental pulmonary branches to suggest pulmonary embolus. Heart: The heart is normal in size and without pericardial effusion. Lungs and pleural spaces: Evaluation of the lung parenchyma is compromised by motion artifact. There are foci of patchy nodular consolidation seen throughout both lungs, greatest at the right lung base on image #46. No pleural effusion is identified. The trachea and central airways are clear. Mediastinum: There is no mediastinal lymphadenopathy. Shoshana: Clear. Axillae: There is no axillary lymphadenopathy. Upper abdomen: A small hiatal hernia is noted. Partially visualized upper abdominal viscera is otherw ise grossly unremarkable. Skeletal structures: The skeletal structures are osteopenic. No lytic or blastic bony lesions are see n. IMPRESSION: 1. There is no evidence of pulmonary embolus in the main, lobar, or segmental pulmonary arteries. 2. There are scattered foci of patchy groundglass consolidation seen throughout both lungs. This is t ypical for an infectious/inflammatory pneumonitis and clinical correlation will be required. Based of the groundglass appearance, a 3-4 month follow-up chest CT is recommended to document resolution. 3. No pleural effusion is identified. 4. Additional findings as above. ACT 112: Positive. There are findings on this exam that require communication between the performing entity and the patient following Patient Test Result Information Act ([place] Act 112) guidelines. Electronically signed by: Diogo Lucio M.D. 06/23/2021 6:16 PM
[2021-06-23] MEDS ORDERED: Heparin IV Adult Wt-Based Standard WITH Bolus Protocol IV STA (18:21)
[2021-06-23] MEDS ORDERED: STAT IV Infusion **Titration per Protocol STA (18:33)
[2021-06-23] MEDS ORDERED: HEPARIN SOD (PORCINE) 1000 UNIT/ML IV ONE (18:40)
[2021-06-23] MEDS ORDERED: dilTIAZem HCL 125 MG in DEXTROSE 5% 100 ML IV SCH (18:45)
[2021-06-23] MEDS ORDERED: HEPARIN SODIUM/DEXTROSE 25,000 UNITS/500 ML BAG IV SCH (18:45)
--- NOTE | 2021-06-23 20:22 | History & Physical Report ---
Date of Service June 23, 2021 Assessment & Plan (1) Pneumonia due to COVID-19 virus: Plan: Pneumonia due to COVID-19 virus with mild hypoxia- Pulse ox observed to be 91% while being examined Dexamethasone 10 mg IV now then 6 mg IV every morning Ventolin HFA 2 puffs 4 times daily, and every 2 hours as needed Duonebs every 2 hours when necessary. Remdesivir IV per protocol Azithromycin 500 mg IV daily Guaifenesin extended release 1200 mg p.o. twice daily Vitamin D 25 mcg IV by mouth daily, continuing outpatient dose Zinc sulfate 220 mg p.o. daily (2) Hypoxia: Plan: Nasal cannula oxygen, titrate to keep pulse ox 94 to 95% (3) Atrial fibrillation with rapid ventricular response: Plan: Atrial fibrillation with RVR/hypertension- Cardizem drip discontinued The patient will be admitted to telemetry for serial cardiac enzymes, serial EKG's, cardiac rhythm monitoring and a 2-D echocardiogram with Dopplers. Troponin 0.052 upon admission. Supply demand mismatch, type II UT versus increased secondary to increased heart rate Continue atenolol 50 mg every morning Lopressor 5 mg IV every 4 hours as needed heart rate greater than 110 May be due to physiologic stress of COVID-19 infection Continue aspirin 81 mg daily Continue heparin drip for now Consult cardiology hold (4) IDDM (insulin dependent diabetes mellitus): Plan: Continue insulin degludec Placed on Accu-Cheks before meals and at bedtime with NovoLog coverage per scale Check hemoglobin A1c (5) HLD (hyperlipidemia): Plan: Continue pravastatin 40 mg daily (6) Hypertension: Plan: See above History of Present Illness Chief Complaint: The patient presents to the emergency department with complaint of 3 to 4 days of worsening cough, generalized myalgias, loss of taste and smell, and shortness of breath, and today developed substernal chest pain and palpitations Primary Care Provider: Jessika Chavarria MD The patient is a 76-year-old female with a past medical history including hypertension, diabetes mellitus, hyperlipidemia and obesity. She presents to the emergency department with symptoms as noted above. She did not have a COVID-19 vaccine. She reports going to her son's house in [place] to dog sit on Saturday, 7 days ago, and began to feel ill about 3-4 days ago with the above symptoms, and then called her to drive her back to [place], where she returned yesterday, since she was feeling so ill. In the emergency department tonight, she is found to be in atrial fibrillation with RVR, for which she was initially placed by the ED on a Cardizem drip. The patient had missed her atenolol 50 mg morning dose, and was given to her this evening. The patient did fairly quickly return to a heart rate of 63, compared to initial heart rate of 130-140. Repeat EKG at this time showed normal sinus rhythm, and the Cardizem drip was discontinued. Patient was also started on a heparin drip by the ED, and will be continued through the evening until assessment by cardiology. Significant laboratory testing: Glucose 237, troponin 0.052, albumin 2.9 and COVID-19 test positive. Allergies Allergy/AdvReac Type Severity Reaction Status Date / Time No Known Allergies Allergy Verified 06/23/21 17:32 Home Medications Medication Instructions Recorded Confirmed Type acetaminophen 500 mg tablet 1,000 mg PO DIRECTED PRN 06/23/21 06/23/21 History (Tylenol Extra Strength) aspirin 81 mg tablet,delayed 81 mg PO DAILY 06/23/21 06/23/21 History release atenolol 50 mg tablet 50 mg PO DAILY 06/23/21 06/23/21 History cholecalciferol (vitamin D3) 25 25 mcg PO DAILY 06/23/21 06/23/21 History mcg (1,000 unit) capsule (Vitamin D3) hydroxyzine HCl 10 mg tablet 10 - 20 mg PO HS PRN 06/23/21 06/23/21 History insulin degludec 200 unit/mL (3 30 unit SUBCUT QPM 06/23/21 06/23/21 History mL) subcutaneous pen (Tresiba FlexTouch U-200 insulin) pravastatin 40 mg tablet 40 mg PO DAILY 06/23/21 06/23/21 History triamcinolone acetonide 0.1 % 1 applic TOPICAL BID PRN 06/23/21 06/23/21 History topical ointment Past Med/Surg History Medical History (Updated 06/24/21 @ 01:35 by Pako Noriega MD) HLD (hyperlipidemia) Hypertension IDDM (insulin dependent diabetes mellitus) No pertinent family history Surgical History (Updated 06/23/21 @ 18:16 by Rosalio Gutiérrez) No pertinent past surgical history Social History Smoking Status: Never smoker Hx Alcohol Use: Yes Alcohol type: wine Hx Substance Use: No Preferred Language: Turkish Communication Ability: Effective Firearms Expert Required: No Beliefs That Will Affect Care: None Current Living Situation: Spouse Other Information That Helps Us Care for You: No Feels Safe at Home: Yes Safety Concerns: Feels Safe At This Time Assistive Devices: Glasses Review of Systems Review of Systems: The patient denies lower extremity swelling, sore throat, fevers, chills, sweats, diarrhea , constipation, abdominal pain, pelvic pain, blood in urine or stool, dysuria, urinary frequency or urgency, lightheadedness, dizziness, headache, memory loss, loss of consciousness, rash, abnormal bruising or bleeding, imbalance, focal weakness, numbness or tingling in arms or legs, back or neck pain, or night sweats. The review of systems is otherwise negative other than for that already noted above, and at least 10 systems have been reviewed. Physical Exam Physical Exam: The patient is awake, alert and oriented 3, well developed and well nourished, normocephalic and atraumatic, lying in bed and in no acute distress. HEENT--PERRL, EOMI, mucous membranes and oropharynx dry. Neck--supple. No JVD. No bruits. Thyroid normal, trachea midline, no adenopathy. Heart--normal S1 and S2. No murmurs, rubs or gallops. Lungs--clear bilaterally, no respiratory distress, no accessory muscle use. Abdomen--normal bowel sounds and soft. Nontender. Nondistended, no hernias or masses, no organomegaly. Extremities--no cyanosis or clubbing. No edema. Dermatologic--normal skin turgor, normal color, no abnormal lymph nodes, no rash. Neurologic--cranial nerves II through XII grossly intact. Rheumatologic--normal range of motion. Psychiatric--normal affect. Results & Data Results & Data ([facility]) Vital Signs (Past 12 Hours) Vital Signs Temp Pulse Pulse Resp BP BP Pulse Ox 06/23/21 19:30 126 H 16 111/70 96 06/23/21 19:15 110 H 16 124/74 96 06/23/21 19:00 126 H 16 179/107 H 96 06/23/21 18:33 130 H 18 130/90 93 06/23/21 18:25 98.1 F 140 H 20 94 06/23/21 18:19 134 H 27 H 90/54 L 92 06/23/21 17:33 101 H 23 166/103 H 92 06/23/21 16:50 92 H 20 165/108 H 97 06/23/21 16:41 108 H 16 92 Laboratory Results Laboratory Results WBC 6.31 K/uL (4.8-10.8) 06/23/21 16:40 RBC 4.80 M/uL (4.2-5.4) 06/23/21 16:40 Hgb 14.6 g/dL (12.0-16.0) 06/23/21 16:40 POC Hgb 14.6 g/dl (12.0-16.0) 06/23/21 16:52 Hct 42.7 % (37-47) 06/23/21 16:40 POC Hct 43 % (37-47) 06/23/21 16:52 MCV 89.0 fL (80-100) 06/23/21 16:40 MCH 30.4 pg (25-34) 06/23/21 16:40 MCHC 34.2 g/dL (32-36) 06/23/21 16:40 RDW Std Deviation 45.5 fL (36.4-46.3) 06/23/21 16:40 RDW Coeff of Tanner 13.9 % (11.5-14.5) 06/23/21 16:40 Plt Count 216 K/uL (130-400) 06/23/21 16:40 MPV 12.0 fL (7.4-10.4) H 06/23/21 16:40 Immature Gran % (Auto) 0.2 % 06/23/21 16:40 Neut % (Auto) 40.6 % 06/23/21 16:40 Lymph % (Auto) 44.8 % 06/23/21 16:40 [place] % (Auto) 13.9 % 06/23/21 16:40 Eos % (Auto) 0.3 % 06/23/21 16:40 Baso % (Auto) 0.2 % 06/23/21 16:40 Neut # (Auto) 2.56 K/uL (1.4-6.5) 06/23/21 16:40 Lymph # (Auto) 2.83 K/uL (1.2-3.4) 06/23/21 16:40 Huntington # (Auto) 0.88 K/uL (0.11-0.59) H 06/23/21 16:40 Eos # (Auto) 0.02 K/uL (0-0.5) 06/23/21 16:40 Baso # (Auto) 0.01 K/uL (0-0.2) 06/23/21 16:40 Immature Gran # (Auto) 0.01 K/uL (0.00-0.02) 06/23/21 16:40 PT 10.6 Seconds (9.0-12.0) 06/23/21 16:40 INR 1.0 (0.9-1.1) 06/23/21 16:40 APTT 26.2 Seconds (21.0-31.0) 06/23/21 16:40 PTT Ratio 1.0 06/23/21 16:40 VBG pH 7.43 (7.36-7.41) H 06/23/21 16:40 VBG pCO2 36 mmHg (38-50) L 06/23/21 16:40 VBG pO2 40 mmHg 06/23/21 16:40 VBG HCO3 24 mmol/L 06/23/21 16:40 VBG O2 Saturation 74.6 % 06/23/21 16:40 VBG Base Excess 0 mEq/L 06/23/21 16:40 Barometric Pressure 734.6 mm/Hg 06/23/21 16:40 POC Sodium 141 mmol/L (135-144) 06/23/21 16:52 Sodium 139 mmol/L (136-145) 06/23/21 16:40 POC Potassium 3.7 mmol/L (3.3-5.0) 06/23/21 16:52 Potassium 3.6 mmol/L (3.5-5.1) 06/23/21 16:40 POC Chloride 103 mmol/L (101-112) 06/23/21 16:52 Chloride 109 mmol/L (98-107) H 06/23/21 16:40 Carbon Dioxide 25 mmol/L (21-32) 06/23/21 16:40 POC Total CO2 24 mmol/L (24-31) 06/23/21 16:52 Anion Gap 5.0 (3-11) 06/23/21 16:40 POC Anion Gap 18.0 mmol/L (16-25) 06/23/21 16:52 POC BUN 17 mg/dl (7-18) 06/23/21 16:52 BUN 16 mg/dl (7-18) 06/23/21 16:40 Creatinine 0.74 mg/dl (0.6-1.2) 06/23/21 16:40 POC Creatinine 0.6 mg/dl (0.6-1.3) 06/23/21 16:52 Est Cr Clr Drug Dosing Not Reportable 06/23/21 16:40 Est GFR ( Amer) 91.2 ml/min 06/23/21 16:40 Est GFR (Non-Af Amer) 78.7 ml/min 06/23/21 16:40 BUN/Creatinine Ratio 21.2 (10-20) H 06/23/21 16:40 Glucose 237 mg/dl (70-99) H 06/23/21 16:40 POC Glucose 295 mg/dl (70-99) H 06/24/21 01:16 POC Glucose (other) 252 mg/dl (70-99) H 06/23/21 16:52 Lactate 1.6 mmol/L (0.4-2.0) 06/23/21 16:40 Calcium 8.6 mg/dl (8.5-10.1) 06/23/21 16:40 POC Ioniz Calcium Ermias 1.27 mmol/l (1.12-1.32) 06/23/21 16:52 Magnesium 1.8 mg/dl (1.8-2.4) 06/23/21 16:40 Total Bilirubin 0.5 mg/dl (0.2-1) 06/23/21 16:40 AST 43 U/L (15-37) H 06/23/21 16:40 ALT 58 U/L (12-78) 06/23/21 16:40 Alkaline Phosphatase 79 U/L (45-117) 06/23/21 16:40 Troponin I 0.052 ng/ml (0-0.045) H* 06/23/21 16:40 Total Protein 6.5 gm/dl (6.4-8.2) 06/23/21 16:40 Albumin 2.9 gm/dl (3.4-5.0) L 06/23/21 16:40 Globulin 3.6 gm/dl (2.5-4.0) 06/23/21 16:40 Albumin/Globulin Ratio 0.8 (0.9-2) L 06/23/21 16:40 Procalcitonin < 0.05 ng/ml (0-0.5) 06/23/21 16:40 Urine Color Yellow 06/23/21 17:39 Urine Appearance Clear (Clear) 06/23/21 17:39 Urine pH 6.0 (4.5-7.5) 06/23/21 17:39 Ur Specific Minford 1.011 (1.000-1.030) 06/23/21 17:39 Urine Protein Negative (Negative) 06/23/21 17:39 Urine Glucose (UA) 1+ (Negative) H 06/23/21 17:39 Urine Ketones Negative (Negative) 06/23/21 17:39 Urine Blood Negative (Negative) 06/23/21 17:39 Urine Nitrite Negative (Negative) 06/23/21 17:39 Urine Bilirubin Negative (Negative) 06/23/21 17:39 Urine Urobilinogen Negative (Negative) 06/23/21 17:39 Ur Leukocyte Esterase Trace (Negative) H 06/23/21 17:39 Urine WBC (Auto) 1-5 /hpf (0-5) 06/23/21 17:39 Urine RBC (Auto) 0-4 /hpf (0-4) 06/23/21 17:39 U Hyaline Cast (Auto) 0 /lpf (0-5) 06/23/21 17:39 U Epithel Cells (Auto) >30 /lpf (0-5) H 06/23/21 17:39 Urine Bacteria (Auto) Negative (Negative) 06/23/21 17:39 COVID-19 Eval Order Covid19 at [facility] 06/23/21 16:30 SARS-CoV-2 (PCR) POSITIVE (Negative) A* 06/23/21 16:30 Impressions Chest X-Ray 06/23/21 16:23 SINGLE VIEW CHEST CLINICAL HISTORY: Sepsis. FINDINGS: An AP, portable, upright chest radiograph is obtained. No prior studies are available for comparison at the time of dictation. The cardiomediastinal silhouette is unremarkable. Airspace opacities at the left lung base likely represent atelectasis. A 9 mm hyperdense nodular density projects over the left lower lung. No large pleural effusion or pneumothorax is seen. The skeletal structures are osteopenic. There are healed right-sided rib fractures. IMPRESSION: 1. Left basilar opacities likely represent atelectasis. Correlate clinically for evidence of a superimposed infectious/inflammatory pneumonitis. 2. A 9 mm hyperdense nodule projects over the left lung base and may represent a calcified granuloma. Follow-up with a dedicated PA and lateral examination in 1- 2 months time is recommended for reassessment. ACT 112: Negative or not required by law. Electronically signed by: Diogo Lucio M.D. 06/23/2021 5:04 PM Chest CTA 06/23/21 17:03 CT ANGIOGRAM OF THE CHEST CLINICAL HISTORY: Atypical chest pain. COMPARISON STUDY: Chest x-ray performed the same day 06/23/2021. TECHNIQUE: Following the IV administration of 116 cc of Optiray 320, CT angiogram of the chest was performed from the upper abdomen to the thoracic inlet utilizing the pulmonary embolus protocol. Images are reviewed in the axial, sagittal, and coronal planes. 3-D MIPS images are created and assessed. IV contrast was administered without complication. A dose lowering technique was utilized adhering to the principles of ALARA. Examination is significantly degraded by motion artifact. CT DOSE: 687.71 mGy.cm FINDINGS: Thyroid: Imaged portions of the thyroid gland are normal in size and attenuation. Thoracic aorta: There is mild atherosclerotic calcification of the thoracic aorta, with is normal in caliber and demonstrates standard 3-vessel arch anatomy. The thoracic aorta is not well opacified. Pulmonary vasculature: The pulmonary trunk is normal in caliber. There are no filling defects identified in main, lobar, or segmental pulmonary branches to suggest pulmonary embolus. Heart: The heart is normal in size and without pericardial effusion. Lungs and pleural spaces: Evaluation of the lung parenchyma is compromised by motion artifact. There are foci of patchy nodular consolidation seen throughout both lungs, greatest at the right lung base on image #46. No pleural effusion is identified. The trachea and central airways are clear. Mediastinum: There is no mediastinal lymphadenopathy. Shoshana: Clear. Axillae: There is no axillary lymphadenopathy. Upper abdomen: A small hiatal hernia is noted. Partially visualized upper abdominal viscera is otherwise grossly unremarkable. Skeletal structures: The skeletal structures are osteopenic. No lytic or blastic bony lesions are seen. IMPRESSION: 1. There is no evidence of pulmonary embolus in the main, lobar, or segmental pulmonary arteries. 2. There are scattered foci of patchy groundglass consolidation seen throughout both lungs. This is typical for an infectious/inflammatory pneumonitis and clinical correlation will be required. Based of the groundglass appearance, a 3- 4 month follow-up chest CT is recommended to document resolution. 3. No pleural effusion is identified. 4. Additional findings as above. ACT 112: Positive. There are findings on this exam that require communication between the performing entity and the patient following Patient Test Result Information Act ([place] Act 112) guidelines. Electronically signed by: Diogo Lucio M.D. 06/23/2021 6:16 PM Code Status & VTE Plan Code Status Full code VTE Prophylaxis Plan VTE Prophylaxis will be ordered: Yes PG Care Time/CCT Total # of Minutes Spent Total Time Spent with Patient: Total time spent is greater than 50% in coordination of care (as documented) at patient's floor/unit and/or counseling patient: Coding Level of Care Code 70439 Initial Inpt Care Lvl 3 Diagnoses Pneumonia due to COVID-19 virus U07.1; J12.82 Hypoxia R09.02 Atrial fibrillation with rapid ventricular response I48.91 IDDM (insulin dependent diabetes mellitus) HLD (hyperlipidemia) E78.5 Hypertension I10
[2021-06-23] MEDS ORDERED: REMDESIVIR 200 MG in SODIUM CHLORIDE 0.9% 210 ML IV STA (21:06)
[2021-06-23] MEDS ORDERED: dexAMETHasone 10 MG in SYRINGE 0 ML IV STA (21:07)
[2021-06-23] MEDS ORDERED: DEXAMETHASONE SOD INJ 4 MG/ML VIAL ONE (21:39)
[2021-06-23] MEDS ORDERED: SODIUM CHLORIDE 0.9% 10ML FLUSH IV SCH (23:00)
[2021-06-24] MEDS ORDERED: TRIAMCINOLONE ACET 0.1% OINT 15 GM TUBE TOP PRN (00:56)
[2021-06-24] MEDS ORDERED: CARBOHYDRATES FOR HYPOGLYCEMIA PO PRN (00:56)
[2021-06-24] MEDS ORDERED: ALBUT/IPRATROP 3MG/0.5MG NEB 3 ML VIAL NEB PRN (00:56)
[2021-06-24] MEDS ORDERED: hydrOXYzine HCl 10 MG TAB PO PRN (00:56)
[2021-06-24] MEDS ORDERED: GLUCOSE 10 TABS/TUBE PO PRN (00:56)
[2021-06-24] MEDS ORDERED: GLUCOSE 40% GEL 15 GM TUBE PO PRN (00:56)
[2021-06-24] MEDS ORDERED: METOPROLOL TARTRATE 1 MG/ML VIAL IV PRN (00:56)
[2021-06-24] MEDS ORDERED: GLUCAGON FOR INJ 1 MG VIAL SQ PRN (00:56)
[2021-06-24] MEDS ORDERED: ONDANSETRON INJ 2 MG/ML 2 ML VIAL IV PRN (00:56)
[2021-06-24] MEDS ORDERED: ACETAMINOPHEN 325 MG TAB PO PRN (00:56)
[2021-06-24] MEDS ORDERED: DEXTROSE 50% 50 ML SYRINGE IV PRN (00:56)
[2021-06-24] MEDS ORDERED: NSS + 20MEQ KCL 20 MEQ/1,000 ML BAG IV SCH (01:30)
[2021-06-24] MEDS: ALBUTEROL HFA 8 GM INHALER INH SCH ×2 (01:34→07:53)
[2021-06-24] MEDS ORDERED: AZITHROMYCIN 500 MG in DEXTROSE 5% 250 ML IV SCH (02:00)
[2021-06-24] MEDS ORDERED: INSULIN GLARGINE SOLOSTAR 100 UNITS/ML 3 ML PEN SC SCH ×2 (02:00→21:00)
[2021-06-24] MEDS: guaiFENesin 600 MG TABCR PO SCH ×2 (02:23→09:25)
[2021-06-24] MEDS: INSULIN ASPART 100 UNITS/ML 3 ML PEN SC SCH ×3 (02:37→12:21)
[2021-06-24 04:36] LABS: Partial Thromboplastin Ratio 4.8
[2021-06-24 04:42] LABS: Partial Thromboplastin Time 125.5 Seconds (21.0-31.0)
[2021-06-24 06:53] LABS: Estimated Average Glucose 217 mg/dl; Hemoglobin A1C 9.2 % (4.5-5.6)
[2021-06-24] MEDS ORDERED: ALBUTEROL HFA 8 GM INHALER INH PRN (08:04)
[2021-06-24] MEDS ORDERED: ASPIRIN 81 MG ECTAB PO SCH (09:00)
[2021-06-24] MEDS ORDERED: ATENOLOL 50 MG TABLET PO SCH (09:00)
[2021-06-24] MEDS ORDERED: ZINC SULFATE 220 MG CAPSULE PO SCH (09:00)
[2021-06-24] MEDS ORDERED: PRAVASTATIN SOD 40 MG TAB PO SCH (09:00)
[2021-06-24] MEDS ORDERED: CHOLECALCIFEROL 1,000 UNITS 25 MCG TAB PO SCH (09:00)
[2021-06-24] MEDS ORDERED: dexAMETHasone 6 MG in SYRINGE 0 ML IV SCH (09:00)
--- NOTE | 2021-06-24 09:33 | Electrocardiogram Report ---
Test Reason : Blood Pressure : / mmHG Vent. Rate : 061 BPM Atrial Rate : 061 BPM P-R Int : 142 ms QRS Dur : 082 ms QT Int : 430 ms P-R-T Axes : 030 007 108 degrees QTc Int : 432 ms Normal sinus rhythm Nonspecific T wave abnormality Abnormal ECG When compared with ECG of 23-JUN-2021 16:46, (unconfirmed) Sinus rhythm has replaced Atrial fibrillation Vent. rate has decreased BY 40 BPM QT has lengthened Confirmed by Micky Coppola ([id number]) on 06/24/2021 9:33:16 AM Referred By: REFERRED SELF Confirmed By:Neo Coppola
--- NOTE | 2021-06-24 10:26 | Electrocardiogram Report ---
Test Reason : Blood Pressure : / mmHG Vent. Rate : 058 BPM Atrial Rate : 058 BPM P-R Int : 156 ms QRS Dur : 078 ms QT Int : 508 ms P-R-T Axes : 053 -02 -05 degrees QTc Int : 498 ms Sinus bradycardia T wave abnormality, consider anterolateral ischemia Prolonged QT Abnormal ECG When compared with ECG of 23-JUN-2021 21:11, (unconfirmed) T wave inversion now evident in Anterior leads QT has lengthened Confirmed by Micky Coppola ([id number]) on 06/24/2021 10:26:06 AM Referred By: REFERRED SELF Confirmed By:Neo Coppola
--- NOTE | 2021-06-24 10:27 | Electrocardiogram Report ---
Test Reason : Blood Pressure : / mmHG Vent. Rate : 144 BPM Atrial Rate : 147 BPM P-R Int : 000 ms QRS Dur : 082 ms QT Int : 334 ms P-R-T Axes : 000 -04 109 degrees QTc Int : 517 ms Poor data quality, interpretation may be adversely affected Atrial fibrillation with rapid ventricular response Minimal voltage criteria for LVH, may be normal variant Nonspecific ST and T wave abnormality Abnormal ECG No previous ECGs available Confirmed by Micky Coppola ([id number]) on 06/24/2021 10:27:14 AM Referred By: REFERRED SELF Confirmed By:Neo Coppola
[2021-06-24] MEDS ORDERED: APIXABAN 2.5 MG TAB PO SCH (11:00)
--- NOTE | 2021-06-24 14:49 | Discharge Summary ---
Date of Service June 24, 2021 Admission HPI Per Admitting Provider The patient is a 76-year-old female with a past medical history including hypertension, diabetes mellitus, hyperlipidemia and obesity. She presents to the emergency department with symptoms as noted above. She did not have a COVID-19 vaccine. She reports going to her son's house in [place] to dog sit on Saturday, 7 days ago, and began to feel ill about 3-4 days ago with the above symptoms, and then called her to drive her back to [place], where she returned yesterday, since she was feeling so ill. In the emergency department tonight, she is found to be in atrial fibrillation with RVR, for which she was initially placed by the ED on a Cardizem drip. The patient had missed her atenolol 50 mg morning dose, and was given to her this evening. The patient did fairly quickly return to a heart rate of 63, compared to initial heart rate of 130-140. Repeat EKG at this time showed normal sinus rhythm, and the Cardizem drip was discontinued. Patient was also started on a heparin drip by the ED, and will be continued through the evening until assessment by cardiology. Significant laboratory testing: Glucose 237, troponin 0.052, albumin 2.9 and COVID-19 test positive. Principal Diagnosis Paroxysmal atrial fibrillation with RVR COVID 19 infection, mild pneumonia Discharge Exam Constitutional well developed, well nourished and comfortable; no acute distress and not ill appearing Eyes PERRL, conjunctivae normal, anicteric sclerae ENMT external ear and nose normal, oropharynx normal Neck trachea midline, no thyromegaly Respiratory normal respiratory effort; no respiratory distress, no labored breathing and no cough Auscultation: lungs clear to auscultation bilaterally; no crackles, no rhonchi and no wheezes Cardiovascular Rate/Rhythm: regular rhythm and + bradycardic Heart Sounds: normal S1 and normal S2; no murmur Extremities: normal capillary refill; no edema Gastrointestinal (Abdomen) normal bowel sounds, soft, nontender, no hepatosplenomegaly Musculoskeletal no cyanosis or clubbing, extremities motor strength 5/5 Skin no rashes, warm and dry Neurologic patellar DTR's 2+ bilat, sensation intact and PERRL, EOMI, accommodation nl, no face palsy, no dysarthria Psychiatric A+Ox3, euthymic affect Discharge Data Allergies Allergy/AdvReac Type Severity Reaction Status Date / Time No Known Allergies Allergy Verified 06/23/21 17:32 Consultations 06/23/21 18:36 ED Decision to Admit Stat Ordered Studies 06/23/21 17:03 CT angio chest PE protocol Stat Hospital Course (1) Pneumonia due to COVID-19 virus: Pneumonia due to COVID-19, infiltrates on CXR lowest saturation reached was 91% on room air she was mostly ranging 93-94% on room air, no distress, minimal cough around day 7 of illness treated with dexamethasone 6mg, will discharge home on 6mg daily x 5 more days recommend Mucinex to thin secretions Vitamin D3 and Zinc for immune support get plenty of rest, stay well nourished and well hydrated instructed to get finger pulse oximeter and monitor oxygen saturations if saturations < 88% then she should come back to ED follow up with PCP (2) Atrial fibrillation with rapid ventricular response: Atrial fibrillation with RVR/hypertension- initially on cardizem drip in ED, converted quickly to NSR, then sinus bradycardia with rates 50's continue her Atenolol 50mg (home medication) was on heparin drip initially, changed to Eliquis 5mg BID d/w Dr. Coppola, he will follow up with her in the office, get echocardiogram at that time afib likely triggered by COVID infection, inflammation (3) IDDM (insulin dependent diabetes mellitus): Continue insulin degludec no hyperglycemia (4) HLD (hyperlipidemia): Continue pravastatin 40 mg daily (5) Hypertension: See above Total Time Total Time Spent Total Time Spent (In Minutes): 32 Discharge Plan Discharge Items Patient Disposition: Home - Self-Care Reason For Visit: A-FIB W/ RVR, COVID-19 PNEUMONIA Discharge Diagnosis: Paroxysmal atrial fibrillation with rapid ventricular response COVID 19 pneumonia Condition on Discharge: Good Goals: stay well nourished, well hydrated, get plenty of rest complete short course of dexamethasone follow up with cardiology about atrial fibrillation Activity: Per Instructions section Activity Comment: stay isolated 10 days from onset of symptoms Driving/Machine Use: No limitations Weightbearing: Full weightbearing Non-emergency contact: Primary Care Provider Call non-emergency contact if: you have any medication questions, your symptoms worsen and you have a fever Follow-up/Referrals: Phil Coppola MD [Physician] - (please make follow up 2-3 weeks) Jessika Chavarria MD [Primary Care Provider] - (one week) Diet: Carb Consistent or DM2 Addtl Attending Provider Instructions: Medications: - DEXAMETHASONE: 6mg daily for 5 more days, next dose due tomorrow morning - ELIQUIS: 5mg twice a day, take a dose this evening - VITAMIN D3: increase to 5000 units a day for the next 5 days, helps support immune system - ZINC: obtain over the counter, 220mg daily for the next 5 days - MUCINEX: 1200mg twice a day, obtain over the counter, take for 5 days COVID 19 pneumonia the lowest your saturations dropped was 91% on room air, you have been stable all day today please continue to take dexamethasone as prescribed stay isolated until 10 days from onset of symptoms stay well nourished, well hydrated, get plenty of rest take Mucinex, Zinc and Vitamin D3 follow up with PCP next week obtain a finger pulse oximeter from [employer] or other drug store, if you feel like your breathing is worse, check your pulse ox if your pulse ox is below 88% then you should return to the emergency room for oxygenation and hospitalization Atrial fibrillation: brief episode, likely caused by COVID 19 infection you have been in normal sinus rhythm since admission continue Atenolol recommend you take Eliquis for stroke prevention follow up with cardiology in a few weeks for echocardiogram, further management of afib Pending Studies at Discharge: No Stand-Alone Forms: My [facility] [employer], Work/School Release, Smoking Cessation Medications and DC Order Prescriptions: New Eliquis 5 mg tablet 5 mg PO BID 30 Days Qty: 60 RF: 3 guaifenesin [Mucinex] 600 mg Tablet Extended Release 12hr 1,200 mg PO Q12 10 Days Qty: 40 RF: 0 dexamethasone 4 mg tablet 6 mg PO DAILY 5 Days Qty: 8 RF: 0 Continued pravastatin 40 mg tablet 40 mg PO DAILY RF: 0 aspirin 81 mg Tablet,Delayed Release (Dr/Ec) 81 mg PO DAILY RF: 0 acetaminophen [Tylenol Extra Strength] 500 mg Tablet 1,000 mg PO DIRECTED PRN (Reason: Pain) RF: 0 triamcinolone acetonide 0.1 % ointment 1 applic TOPICAL BID PRN (Reason: Skin Irritation) RF: 0 hydroxyzine HCl 10 mg tablet 10 - 20 mg PO HS PRN (Reason: Itching) RF: 0 atenolol 50 mg tablet 50 mg PO DAILY RF: 0 cholecalciferol (vitamin D3) [Vitamin D3] 25 mcg (1,000 unit) Capsule 25 mcg PO DAILY RF: 0 Tresiba FlexTouch U-200 200 unit/mL (3 mL) insulin pen 30 unit SUBCUT QPM RF: 0 Discharge Orders: Discharge Order (Routine); Ordered 06/24/21 Ordered By: Leroy Charles Admission Data Admit Date/Time: 06/23/21 20:21 Attending Provider: Leroy Charles Admit Provider: Pako Noriega Primary Care Provider: Jessika Chavarria Other Providers: Pako Noriega Other Interventions: Discharge Summary Assessment (RN) Last Done: 06/24/21 14:57 Coding Level of Care Code D/C DAY MANAGEMENT >30 MINS Diagnoses Pneumonia due to COVID-19 virus U07.1; J12.82 Atrial fibrillation with rapid ventricular response I48.91 IDDM (insulin dependent diabetes mellitus) HLD (hyperlipidemia) E78.5 Hypertension I10
[2021-06-24] MEDS ORDERED: REMDESIVIR 100 MG in SODIUM CHLORIDE 0.9% 230 ML IV SCH (20:00)
--- NOTE | 2021-06-25 07:37 | Electrocardiogram Report ---
Test Reason : Blood Pressure : / mmHG Vent. Rate : 101 BPM Atrial Rate : 241 BPM P-R Int : 000 ms QRS Dur : 078 ms QT Int : 290 ms P-R-T Axes : 000 -06 134 degrees QTc Int : 376 ms Atrial fibrillation with rapid ventricular response transitioning to sinus rhythm Minimal voltage criteria for LVH, may be normal variant Nonspecific T wave abnormality Abnormal ECG When compared with ECG of 23-JUN-2021 16:26, Nonspecific T wave abnormality, worse in Lateral leads Confirmed by Micky Coppola ([id number]) on 06/25/2021 7:36:59 AM Referred By: REFERRED SELF Confirmed By:Neo Coppola
== END 2021-06-24 16:53 | disposition home or self-care (01) | DRG 177 ==
LOC: ED 16:21 → 2S 20:21 → SUATTDRO 20:21 → 2S 06-24 00:53